=== PATIENT | male | born 1955 | race Caucasian/White ===

== ENCOUNTER 2020-03-30 10:52 | Day surgery (SDC) | payer BC ==
[~2020-03-30] VITALS: Ht 193 cm; Wt 102.1 kg
[2020-03-30] VITALS (7 sets, daily range): BP systolic 132–165; BP diastolic 74–94; PULSE 64–85; TEMP 97.5–98
[2020-03-30] MEDS ORDERED: CELEBREX 200MG200 MG PO (12:02)
[2020-03-30] MEDS ORDERED: NORCO 325 MG-51 TAB PO (13:48)
--- NOTE | 2020-03-30 14:27 | NUR ---
Pt to [facility] bay 8 via cart from PACU. Pt drowsy, but awake and answering questions appropriatly. Pt unable to rate pain, stating "It's just a little tender on the right side." Pt denies need for pain medication at this time. Pt denies nausea. Lap sites to abdomen are covered with bandaids x3. Sites are clean dry and intact. Scrotal support is on. Will continue to monitor. Call light within reach. Side rails up x2.
--- NOTE | 2020-03-30 14:42 | NUR ---
Pt resting. Denies needs. Will continue to monitor. Call light within reach.
--- NOTE | 2020-03-30 14:57 | NUR ---
HOB elevated for pt comfort. Pt states "it's just a dull ache on that right side." Pt denies needs. Call light within reach.
--- NOTE | 2020-03-30 15:12 | NUR ---
Pt awake. Soup and crackers given per pt request. Will continue to monitor. Call light within reach.
--- NOTE | 2020-03-30 15:41 | NUR ---
Motrin 600mg PO given per PRN orders for pain. No change in "dull ache to right side." but we will be getting up and moving soon, and wanted to pre-treat the pain. Pt consumed 100% of his soup and crackers. Pt denies further needs at this time. Call light within reach.
--- NOTE | 2020-03-30 16:20 | NUR ---
Pt up to restroom with stand by assist. Pt voids without difficulties. Pt back to room. IV site discontinued with all parts intact. Pt up to dress. Call light within reach.
--- NOTE | 2020-03-30 17:02 | NUR ---
Pt escorted to private car via wheel chair. Pt accompanied home by his .
== END 2020-03-30 17:02 | disposition home or self-care (01) ==
LOC: SDCO 10:52
DX: K40.90 Unilateral inguinal hernia, without obstruction or gangrene, not specified as recurrent (principal)
CPT/HCPCS: C1781; J0360; J0690; J1100; J1885; J2405; J2704; J3010; J7120

== ENCOUNTER → 2021-01-17 | Outpatient (CLI) | payer BC ==
[~2021-01-17] MED LIST: CELEBREX 200MG200 MG PO; NORCO 325 MG-51 TAB PO
== END ==
LOC: COL.VAS 10:30
DX: I80.02 Phlebitis and thrombophlebitis of superficial vessels of left lower extremity (principal)